=== PATIENT | male | born 1955 | race Caucasian/White ===

== ENCOUNTER 2017-03-03 21:22 | Inpatient (IN) | payer OTHER ==
[2017-03-03] VITALS (15 sets, daily range): BP systolic 176–206; BP diastolic 82–106
[~2017-03-03] VITALS: Ht 177.8 cm; Wt 105.7 kg
--- NOTE | ~2017-03-03 | WRIGHTHP ---
[place], [place] PATIENT HISTORY AND PHYSICAL EXAM NAME: SANJIV SAPP [facility] #: [id number] UNIT #: [id number] ROOM: [facility] DOCTOR: FADI DIAZ MD BIRTHDATE: [birth year] DOS: 03/03/2017 HISTORY OF PRESENT ILLNESS: The patient is a 61-year-old gentleman with a past medical history of benign essential hypertension, mixed hyperlipidemia, obesity, pre-diabetic. The patient presented to the Emergency Department at [facility] with sensation of chest pressure lasting about 2 hours with no nausea or diaphoresis. The pressure and heaviness in his chest moved into his epigastric area and now has resolved and he is asymptomatic. No shortness of breath. No GI or urinary symptoms. REVIEW OF SYSTEMS: LUNGS: No increasing shortness breath or wheezing. GASTROINTESTINAL: No nausea, vomiting, diarrhea or constipation. CARDIOVASCULAR: The patient did have complaints of chest pains. FAMILY HISTORY: Noncontributory. SOCIAL HISTORY: Smokes 1 pack of cigarettes a day for 40 years. Denies any alcohol or drug abuse. PHYSICAL EXAMINATION: GENERAL APPEARANCE: The patient is alert and oriented x 3, in no visible distress, obese. HEENT AND NECK: Extraocular movements are intact. Sclerae are anicteric. Oral mucosa is moist and clean. No obvious facial weakness. Neck is supple without any lymphadenopathy. No thyromegaly. No JVD. No carotid arterial bruits. LUNGS: Clear to auscultation. No wheezing. No rhonchi. CARDIOVASCULAR SYSTEM: Heart rate is regular in rate and rhythm. S1 and S2 normally audible. No significant murmur or any other abnormal cardiac sounds. ABDOMEN: Soft, nontender. No obvious organomegaly. Bowel sounds are present. No obvious herniation. EXTREMITIES: Without significant cyanosis or edema. Warm to touch. CENTRAL NERVOUS SYSTEM: Alert and oriented x 3. Cranial nerves II-XII are intact. Speech is normal. The patient is able to move all extremities. Normal muscle strength. Deep tendon reflexes are equal on both sides. Plantars were downgoing. LABORATORY DATA: The patient's troponin levels x 3 have been normal. Slight leukocytosis, white cell count 11,000. IMPRESSION: 1. Chest pains from uncertain etiology. Cardiac enzymes have been negative and he is asymptomatic now and being monitored closely. Cardiology consulted who will decide about further management. The patient may require cardiac stress testing because he has risk factors of obesity, male sex, age, hyperlipidemia and hypertension. 2. Severe benign essential hypertension with severely elevated blood pressure at 206/89 in the Emergency Department, which resolved with treatment. The blood pressures have normalized now. The patient was given nifedipine infusion. 3. Mixed hyperlipidemia. The patient continued on simvastatin. [place], [place] PATIENT HISTORY AND PHYSICAL EXAM [facility]: [id number] #: [id number] ROOM: [facility] DOCTOR: FADI DIAZ MD BIRTHDATE: [birth year] 4. Benign essential hypertension, generally treated with lisinopril. 5. The patient has been kept on aspirin. FADI DIAZ MD CM:HISPHYS:PATIENT HISTORY AND PHYSICAL EXAMINATION [id number] FADI DIAZ MD 03/04/17 1026 interface
--- NOTE | ~2017-03-03 | ST ---
[place], [place] EXERCISE STRESS TEST REPORT NAME: [facility] #: [id number] UNIT #: [id number] ROOM: [facility] DOCTOR: MAICOL GOMEZ MD BIRTHDATE: [birth year] DOS: 03/04/2017 LEXISCAN STRESS EKG REPORT REFERRING PHYSICIAN: Dr. Tapia. INDICATION: Central chest pain. DESCRIPTION OF PROCEDURE: The patient underwent standard protocol Lexiscan stress EKG. The patient's baseline EKG showed normal sinus rhythm, nonspecific ST-T wave changes. The patient's baseline heart rate was 72 beats per minute with a blood pressure of 106/64. The patient's peak heart rate was 92 with a blood pressure 122/84. The patient had no ischemic changes to his EKG. The patient had no arrhythmias and no significant symptoms. SUMMARY OF FINDINGS: Unremarkable Lexiscan stress EKG. Please see separate report for perfusion scan results. MAICOL GOMEZ MD CM:STRESS:EXERCISE STRESS TEST REPORT [id number] MAICOL GOMEZ MD
[~2017-03-03 21:22] MED LIST: ASPIRIN81 M1 PO; HYDR12.5C PO; LISINOPRIL-HCTZ 10-1; LISINOPRIL/HCTZ1 TA3 PO; LISINOPRIL10 MG PO; PRAVACHOL40 MG PO
[2017-03-03 21:45] LABS: BASO # 0.1 10*3/uL (0.0-0.1); BASO % 0.6 % (0.0-1.0); EOS # 0.3 10*3/uL (0.0-0.4); EOS % 2.2 % (1.0-4.0); HEMATOCRIT 46.8 % (42.0-52.0); HEMOGLOBIN 16.7 g/dl (14.0-18.0); LYMPH # 4.7 10*3/uL (1.3-4.4); LYMPH % 41.3 % (27.0-41.0); MEAN CELL VOLUME 89.5 fl (80.0-94.0); MEAN CORPUSCULAR HGB 31.9 pg (27.0-31.0); MEAN CORPUSCULAR HGB CONC 35.7 g/dl (33.0-37.0); MONO # 0.8 10*3/uL (0.1-1.0); MONO % 7.4 % (3.0-9.0); NEUT # 5.5 10*3/uL (2.3-7.9); NEUT % 48.1 % (47.0-73.0); PLATELET COUNT AUTOMATED 246 10*3/uL (130-400); RED BLOOD COUNT 5.23 10*6/uL (4.50-5.90); RED CELL DISTRI WIDTH 12.1 % (0-14.5); WHITE BLOOD COUNT 11.3 10*3/uL (4.8-10.8)
--- NOTE | 2017-03-03 21:45 | NUR ---
PT DIAPHORETIC.PT STATES PAIN SUBSIDING A LITTLE AFTER NITRO SL TAB GIVEN.PT REPORTS FEELS LIKE SOMEONE SITTING ON HIS CHEST.O2 SAT DECREASED 92% RA.PT PLACED ON 2L O2 VIA NC.
[2017-03-03 21:55] LABS: ACT PARTIAL THROMBO TIME 25.5 SECONDS (20.8-31.5); INTERNATIONAL NORM RATIO 0.9 (2.0-3.5)
--- NOTE | 2017-03-03 21:58 | NUR ---
NITRO DRIP TITRATED TO 10MCG/MIN.
[2017-03-03 22:02] LABS: ALKALINE PHOSPHATASE 80 U/L (45-117); BUN 15 mg/dl (7-24); CHLORIDE 98 mmol/L (98-107); CREATININE 1.11 mg/dL (0.70-1.30); POTASSIUM 3.4 mmol/L (3.5-5.1); SGOT/AST 25 IU/L (3-35); SGPT/ALT 54 U/L (12-78); SODIUM 137 mmol/L (136-145); TOTAL PROTEIN 7.7 gm/dL (6.4-8.2)
[2017-03-03 22:07] LABS: TROPONIN I < 0.015 ng/ml (<0.045)
--- NOTE | 2017-03-03 22:22 | NUR ---
PT REPORTS PAIN MIDSTERNAL CHEST PAIN HAS SINCE RESOLVED BUT REPORTS NOW HAVING EPIGASTRIC PAIN.MD NOTIFIED.
--- NOTE | 2017-03-03 22:33 | NUR ---
PT MEDICATED WITH 15ML MAALOX PER MD VERBAL ORDER.
--- NOTE | 2017-03-03 22:51 | NUR ---
PER MD CARPENTER VERBAL ORDER,PT MEDICATED WITH ADDITIONAL 2.5ML LOPRESSOR.
[2017-03-04] VITALS (33 sets, daily range): BP systolic 92–182; BP diastolic 50–102
--- NOTE | 2017-03-04 00:48 | NUR ---
IV REMOVED FROM LAC INTACT.NEW IV PLACED PT LFA.IV FLUSHES WELL.INFUSION OF NICARDIPINE INITIATED.PT REPORTS RELIEF OF ABDOMINAL PAIN AFTER RECEIVING SECOND DOSE OF PAIN MEDICATION.
--- NOTE | 2017-03-04 01:05 | NUR ---
A 61, admitted to [facility], under the services of Dr. EMILY BENNETT,FADI Toribio with a diagnosis of CHEST PAIN. Chief complaint is CHEST PAIN. Patient arrived via stretcher from ER. Monitor applied. Initial assessment completed. Vital signs taken and recorded. DR. EMILY BENNETT,FADI Toribio notified of admission to the unit. Orders received. See assessment for past medical history, medications and allergies. Patient and/or family oriented to unit. [facility] visitation policy reviewed. Clothing/patient valuable form completed. KANDIS PULIDO
[2017-03-04] MEDS ORDERED: MULTIVITAMINS1 EAC5 PO (01:16)
[2017-03-04] MEDS ORDERED: OMEGA-31000 M1 PO (01:17)
--- NOTE | 2017-03-04 01:48 | NUR ---
Dr. Valadez's answering service notified of consult.
--- NOTE | 2017-03-04 07:23 | NUR ---
NORCO GIVEN FOR 10/10 HEADACHE.
--- NOTE | 2017-03-04 08:30 | NUR ---
Heel Varnisher in to talk to patient. Patient states lives at HOME with HIS FATHER. There are 15 steps in the home. Physician: DR WELLINGTON Pharmacy: [facility] health services: NONE Patient's level of ADLs: INDEPENDENT Patient has working utilities: YES DME: NONE Follow-up physician's appointment after d/c: PREFERS TO MAKE HIS OWN APPT Does patient want to access PORTAL?: Discharge plan HOME. LOR SALVADOR
--- NOTE | 2017-03-04 09:07 | NUR ---
DR GOMEZ PHONED IN AND UPDATED ON PT'S STATUS. STRESS TEST ORDERED FOR TODAY. CARDENE AND NITRO GTT DC. NPO.
--- NOTE | 2017-03-04 11:24 | NUR ---
TAKEN FOR STRESS TEST VIA WHEELCHAIR. PT DENIED ANY CHESTPAIN AT THIS TIME. VITALS STABLE.
--- NOTE | 2017-03-04 12:12 | NUR ---
INFORMED CONSENT SIGNED FOR LEXISCAN STRESS TEST WITH DR. GOMEZ. RESTING EKG NSR, HR 72, BP 106/64. PULSE OX 98% ON 4L/NC, LUNGS CLEAR BUT DEMINISHED BILATERALLY IN BASES. COMPLETED ONE MINUTE OF LEXISCAN PROTOCOL RECEIVING LEXISCAN 0.4MG OVER 10 SECONDS. NO ARRHYTHMIAS OR ST CHANGES NOTED. PT HAD NO C/O. LAST RECOVERY HR 83, BP 116/60. WAITING NUCLEAR SCANNING IN STABLE CONDITION.
--- NOTE | 2017-03-04 13:15 | NUR ---
PT RETURNED FROM STRESS TEST WITH NO C/O ANY BUT HUNGER. STATED TEST WENT WELL. AWAITING RESULTS. VITALS STABLE.
--- NOTE | 2017-03-04 15:22 | NUR ---
DR GOMEZ CALLED AND STATED STRESS TEST IS NEGATIVE AND CAN FOLLOW UP OUT PATIENT.
--- NOTE | 2017-03-04 16:22 | NUR ---
Discharge instructions reviewed with patient/family. Patient receptive and verbalizes understanding. Follow-up care arranged. Written instructions given to patient/family. CHUCK DUNN
== END 2017-03-04 16:22 | disposition home or self-care (01) | DRG 313 ==
LOC: ED 21:22 → ICCU 22:54
PROVIDERS: Emergency Medicine Emergency Medical Services; ADMIT Internal Medicine
PROC: 4A02XM4 Measurement of Cardiac Total Activity, External Approach (ICD-10-PCS; principal; 2017-03-04)
DX: R07.9 Chest pain, unspecified (principal); E66.9 Obesity, unspecified; I10 Essential (primary) hypertension; R10.13 Epigastric pain; E78.2 Mixed hyperlipidemia; F17.210 Nicotine dependence, cigarettes, uncomplicated; Z79.899 Other long term (current) drug therapy; Z79.82 Long term (current) use of aspirin; Z68.38 Body mass index [BMI] 38.0-38.9, adult

== ENCOUNTER → 2021-12-18 | Outpatient (CLI) | payer MEDICARE ==
[~2021-12-18] MED LIST changes: +MULTIVITAMINS1 EAC5 PO; +OMEGA-31000 M1 PO
[2021-12-18 16:47] LABS: BUN 13 mg/dl (7-24); CHLORIDE 103 mmol/L (98-107); CREATININE 1.03 mg/dL (0.70-1.30); POTASSIUM 3.4 mmol/L (3.5-5.1); SODIUM 138 mmol/L (136-145)
== END | disposition home or self-care (01) ==
LOC: LAB 16:08
PROVIDERS: ATTEND Internal Medicine
DX: U07.1 COVID-19 (principal)

== ENCOUNTER 2022-06-19 14:01 | Emergency (ER) | payer MEDICARE ==
[~2022-06-19] VITALS: Ht 180.3 cm; Wt 96.2 kg
[2022-06-19 16:23] LABS: BILIRUBIN Negative (Negative); BLOOD 3+ (Negative); CLARITY Cloudy (Clear); COLOR Orange (Yellow); GLUCOSE Negative (Negative); KETONE Negative (Negative); LEUKO ESTERASE Trace (Negative); NITRITE Negative (Negative); PH 6.5 (4.5-8.0); SPECIFIC GRAVITY 1.015 (1.001-1.030)
[2022-06-19 16:43] LABS: BACTERIA TRACE; EPITHELIAL CELLS 0-2; RBC TNTC rbc/hpf (0-2)
[2022-06-19 17:35] LABS: BASO # 0.1 10*3/uL (0.0-0.1); BASO % 0.5 % (0.0-1.0); EOS # 0.1 10*3/uL (0.0-0.4); EOS % 0.5 % (1.0-4.0); LYMPH # 2.5 10*3/uL (1.3-4.4); LYMPH % 24.5 % (27.0-41.0); MEAN CELL VOLUME 90.7 fl (80.0-94.0); MEAN CORPUSCULAR HGB 32.1 pg (27.0-31.0); MEAN CORPUSCULAR HGB CONC 35.3 g/dl (33.0-37.0); MEAN PLATELET VOLUME 10.8 fl (9.6-12.3); MONO # 0.7 10*3/uL (0.1-1.0); MONO % 6.7 % (3.0-9.0); NEUT # 6.7 10*3/uL (2.3-7.9); NEUT % 67.4 % (47.0-73.0); PLATELET COUNT AUTOMATED 245 10*3/uL (130-400); RED BLOOD COUNT 4.96 10*6/uL (4.50-5.90); RED CELL DISTRI WIDTH 11.9 % (0-14.5)
[2022-06-19 17:48] LABS: ACT PARTIAL THROMBO TIME 29.3 SECONDS (20.0-32.1)
[2022-06-19 18:01] LABS: ALKALINE PHOSPHATASE 64 U/L (46-116); BUN 10 mg/dl (9-23); CHLORIDE 104 mmol/L (98-107); POTASSIUM 3.9 mmol/L (3.4-5.1); SGPT/ALT 26 U/L (10-49)
[2022-06-19] MEDS ORDERED: CIPRO500 MG PO (18:22)
== END 2022-06-19 18:35 | disposition home or self-care (01) ==
LOC: ED 14:01
PROVIDERS: Emergency Medicine
DX: R31.9 Hematuria, unspecified (principal); I10 Essential (primary) hypertension; E78.00 Pure hypercholesterolemia, unspecified; Z96.651 Presence of right artificial knee joint; Z98.890 Other specified postprocedural states

== ENCOUNTER → 2022-07-05 | Outpatient (CLI) | payer MEDICARE ==
[~2022-07-05] MED LIST changes: +CIPRO500 MG PO
== END | disposition home or self-care (01) ==
LOC: CT 01:02
PROVIDERS: ATTEND Internal Medicine Nephrology
DX: C67.4 Malignant neoplasm of posterior wall of bladder (principal); K80.20 Calculus of gallbladder without cholecystitis without obstruction; M25.851 Other specified joint disorders, right hip; I70.8 Atherosclerosis of other arteries; N40.0 Benign prostatic hyperplasia without lower urinary tract symptoms; K57.32 Diverticulitis of large intestine without perforation or abscess without bleeding; I70.0 Atherosclerosis of aorta

== ENCOUNTER → 2022-07-09 | Outpatient (CLI) | payer MEDICARE ==
[2022-07-09 09:56] LABS: BASO % 0.4 % (0.0-1.0); EOS # 0.1 10*3/uL (0.0-0.4); EOS % 0.9 % (1.0-4.0); HEMATOCRIT 46.6 % (42.0-52.0); LYMPH % 24.8 % (27.0-41.0); MEAN CELL VOLUME 92.8 fl (80.0-94.0); MEAN CORPUSCULAR HGB 31.9 pg (27.0-31.0); MEAN CORPUSCULAR HGB CONC 34.3 g/dl (33.0-37.0); MEAN PLATELET VOLUME 10.7 fl (9.6-12.3); MONO # 0.6 10*3/uL (0.1-1.0); NEUT # 5.2 10*3/uL (2.3-7.9); NEUT % 65.5 % (47.0-73.0); PLATELET COUNT AUTOMATED 248 10*3/uL (130-400); RED BLOOD COUNT 5.02 10*6/uL (4.50-5.90); RED CELL DISTRI WIDTH 11.9 % (0-14.5); WHITE BLOOD COUNT 7.9 10*3/uL (4.8-10.8)
[2022-07-09 10:13] LABS: ALKALINE PHOSPHATASE 69 U/L (46-116); BUN 14 mg/dl (9-23); CHLORIDE 100 mmol/L (98-107); POTASSIUM 4.2 mmol/L (3.4-5.1); SGPT/ALT 32 U/L (10-49); TOTAL PROTEIN 7.2 gm/dL (6.0-8.0)
[2022-07-09 10:35] LABS: ACT PARTIAL THROMBO TIME 29.3 SECONDS (20.0-32.1)
[2022-07-09 11:03] LABS: BILIRUBIN Negative (Negative); BLOOD Negative (Negative); CLARITY Clear (Clear); COLOR Yellow (Yellow); GLUCOSE Negative (Negative); KETONE Negative (Negative); LEUKO ESTERASE Negative (Negative); NITRITE Negative (Negative); PH 5.5 (4.5-8.0); SPECIFIC GRAVITY 1.015 (1.001-1.030)
[2022-07-09 12:28] LABS: RBC 0-2 rbc/hpf (0-2); WBC 0-2 wbc/hpf (0-5)
== END | disposition home or self-care (01) ==
LOC: LAB 09:29
PROVIDERS: ATTEND Urology
DX: Z01.818 Encounter for other preprocedural examination (principal); R31.9 Hematuria, unspecified; R53.83 Other fatigue; I49.1 Atrial premature depolarization; F17.200 Nicotine dependence, unspecified, uncomplicated

== ENCOUNTER → 2022-11-01 | Outpatient (CLI) | payer MEDICARE | END | disposition home or self-care (01) | LOC: CARD 10-30 14:00 | PROVIDERS: ATTEND Internal Medicine Nephrology | DX: I35.0 Nonrheumatic aortic (valve) stenosis (principal) ==

== ENCOUNTER → 2023-05-31 | Outpatient (CLI) | payer MEDICARE | END | disposition home or self-care (01) | LOC: LAB 13:11 | PROVIDERS: ATTEND Urology | DX: C67.9 Malignant neoplasm of bladder, unspecified (principal) ==

== ENCOUNTER → 2023-06-04 | Outpatient (CLI) | payer MEDICARE | END | disposition home or self-care (01) | LOC: LAB 01:00 | PROVIDERS: ATTEND Urology | DX: C67.9 Malignant neoplasm of bladder, unspecified (principal) ==

== ENCOUNTER → 2023-06-18 | Outpatient (CLI) | payer MEDICARE ==
[~2023-06-18] MED LIST changes: +IOHEXOL 300 MG/ML 100 ML VIAL IV ONE; +IOHEXOL 350 MG/ML 100 ML VIAL IV ONE
== END | disposition home or self-care (01) ==
LOC: LAB 02:03 → CT 09:00 → LAB 17:00 → CT 17:00
PROVIDERS: ATTEND Urology
DX: Z01.818 Encounter for other preprocedural examination (principal); I25.10 Atherosclerotic heart disease of native coronary artery without angina pectoris; K80.20 Calculus of gallbladder without cholecystitis without obstruction; K76.0 Fatty (change of) liver, not elsewhere classified; K57.30 Diverticulosis of large intestine without perforation or abscess without bleeding; N40.0 Benign prostatic hyperplasia without lower urinary tract symptoms; R91.1 Solitary pulmonary nodule

== ENCOUNTER → 2024-05-26 | Outpatient (CLI) | payer MEDICARE ==
[~2024-05-26] MED LIST changes: -IOHEXOL 300 MG/ML 100 ML VIAL IV ONE
== END | disposition home or self-care (01) ==
LOC: LAB 02:10 → CT 09:00 → LAB 09:00
PROVIDERS: ATTEND Urology
DX: C67.9 Malignant neoplasm of bladder, unspecified (principal); K59.00 Constipation, unspecified; K57.30 Diverticulosis of large intestine without perforation or abscess without bleeding; R91.1 Solitary pulmonary nodule; K80.20 Calculus of gallbladder without cholecystitis without obstruction; N40.0 Benign prostatic hyperplasia without lower urinary tract symptoms

== ENCOUNTER → 2024-08-14 | Outpatient (CLI) | payer MEDICARE ==
[~2024-08-14] MED LIST changes: +FLOMAX0.4 MG PO; -IOHEXOL 350 MG/ML 100 ML VIAL IV ONE; +NEURONTIN100 MG PO; +NIFEDIPINE30 MG PO
== END | disposition home or self-care (01) ==
LOC: ORTHO 00:55
PROVIDERS: ATTEND Orthopaedic Surgery
DX: M19.031 Primary osteoarthritis, right wrist (principal); M79.89 Other specified soft tissue disorders

== ENCOUNTER → 2024-08-27 | Day surgery (SDC) | payer MEDICARE ==
[2024-08-25 12:13] LABS: BUN 9 mg/dl (9-23); CHLORIDE 101 mmol/L (98-107); POTASSIUM 3.7 mmol/L (3.4-5.1)
[~2024-08-27] VITALS: Ht 177.8 cm; Wt 95.3 kg
[~2024-08-27] MED LIST changes: +BUPivacaine 0.5% 10 ML VIAL ONE; +Lactated Ringer's Solution 1,000 ML IV ONE; +Lidocaine Hydrochloride 2% 5 ML SDV IM ONE; +Lidocaine Hydrochloride 5 ML AMP ONE; +Ondansetron Hydrochloride 4 MG/2 ML VIAL IV ONE; +PROPOFOL 200 MG/20 ML VIAL IV ONE; +ceFAZolin sodium/sodium chlor 1 GM/10 ML SYR IV ONE; +ceFAZolin sodium/sodium chlor 20 ML IV ONE; +fentaNYL CITRATE 100 MCG/2 ML VIAL IV ONE
[2024-08-27 06:40] VITALS: BP 116/61
[2024-08-27 07:57] VITALS: BP 100/51
[2024-08-27 08:12] VITALS: BP 104/59
== END | disposition home or self-care (01) ==
LOC: SDC 08-25 08:00
PROVIDERS: ATTEND Orthopaedic Surgery
DX: G56.03 Carpal tunnel syndrome, bilateral upper limbs (principal); I10 Essential (primary) hypertension; M25.539 Pain in unspecified wrist; E78.00 Pure hypercholesterolemia, unspecified; F17.210 Nicotine dependence, cigarettes, uncomplicated; I44.4 Left anterior fascicular block; Z86.73 Personal history of transient ischemic attack (TIA), and cerebral infarction without residual deficits; Z96.651 Presence of right artificial knee joint; Z85.51 Personal history of malignant neoplasm of bladder; Z98.890 Other specified postprocedural states; Z79.899 Other long term (current) drug therapy

== ENCOUNTER → 2024-09-24 | Day surgery (SDC) | payer MEDICARE ==
[~2024-09-24] VITALS: Ht 177.8 cm; Wt 95.7 kg
[~2024-09-24] MED LIST changes: +Dexamethasone Sodium Phospha 4 MG/ML VIAL IV ONE; +Lidocaine Hydrochloride 30 ML VIAL ONE; -Lidocaine Hydrochloride 5 ML AMP ONE; -Ondansetron Hydrochloride 4 MG/2 ML VIAL IV ONE; -ceFAZolin sodium/sodium chlor 1 GM/10 ML SYR IV ONE; +ceFAZolin sodium/sodium chlor 10 ML IV ONE; -ceFAZolin sodium/sodium chlor 20 ML IV ONE; -fentaNYL CITRATE 100 MCG/2 ML VIAL IV ONE
[2024-09-24 08:03] VITALS: BP 104/50
[2024-09-24 08:17] VITALS: BP 106/55
[2024-09-24 08:32] VITALS: BP 108/63
[2024-09-24 08:52] VITALS: BP 108/64
[2024-09-24 09:06] VITALS: BP 112/59
== END | disposition home or self-care (01) ==
LOC: SDC 09-18 08:45
PROVIDERS: ATTEND Orthopaedic Surgery
DX: G56.03 Carpal tunnel syndrome, bilateral upper limbs (principal); I10 Essential (primary) hypertension; E78.00 Pure hypercholesterolemia, unspecified; F12.90 Cannabis use, unspecified, uncomplicated; Z86.73 Personal history of transient ischemic attack (TIA), and cerebral infarction without residual deficits; Z96.651 Presence of right artificial knee joint; Z87.891 Personal history of nicotine dependence; Z98.890 Other specified postprocedural states; Z79.82 Long term (current) use of aspirin; Z79.899 Other long term (current) drug therapy; Z82.49 Family history of ischemic heart disease and other diseases of the circulatory system; Z80.0 Family history of malignant neoplasm of digestive organs

== ENCOUNTER → 2024-10-29 | Outpatient (CLI) | payer MEDICARE ==
[~2024-10-29] MED LIST changes: -BUPivacaine 0.5% 10 ML VIAL ONE; -Dexamethasone Sodium Phospha 4 MG/ML VIAL IV ONE; +IOHEXOL 350 MG/ML 100 ML VIAL IV ONE; -Lactated Ringer's Solution 1,000 ML IV ONE; -Lidocaine Hydrochloride 2% 5 ML SDV IM ONE; -Lidocaine Hydrochloride 30 ML VIAL ONE; -PROPOFOL 200 MG/20 ML VIAL IV ONE; -ceFAZolin sodium/sodium chlor 10 ML IV ONE
== END | disposition home or self-care (01) ==
LOC: CT 10-21 10:00 → LAB 08:40 → CT 09:00
PROVIDERS: ATTEND Urology
DX: K57.30 Diverticulosis of large intestine without perforation or abscess without bleeding (principal); K76.0 Fatty (change of) liver, not elsewhere classified; N40.0 Benign prostatic hyperplasia without lower urinary tract symptoms; K80.20 Calculus of gallbladder without cholecystitis without obstruction; C67.9 Malignant neoplasm of bladder, unspecified

== ENCOUNTER → 2024-11-14 | Outpatient (CLI) | payer MEDICARE ==
[~2024-11-14] MED LIST changes: -IOHEXOL 350 MG/ML 100 ML VIAL IV ONE
== END ==
LOC: US 01:46
PROVIDERS: ATTEND Internal Medicine Nephrology
DX: E11.9 Type 2 diabetes mellitus without complications (principal); E88.810 Metabolic syndrome; I10 Essential (primary) hypertension; R20.2 Paresthesia of skin; E11.41 Type 2 diabetes mellitus with diabetic mononeuropathy; I73.00 Raynaud's syndrome without gangrene